=== PATIENT | male | born 1960 | race Caucasian/White ===

== ENCOUNTER → 2021-06-04 | Outpatient (CLI) | payer OTHER ==
[~2021-06-04] VITALS: Ht 170.2 cm; Wt 114.8 kg
[~2021-06-04] MED LIST: ASA81BEC PO; CHILDREN'S ZYRT10 M1 PO; DIOVAN HCT 1601 EACH PO; KLOR-CON 10 ER10 MEQ PO; Q-SORB CO Q-10100 MG PO; TOPROL XL100 MG PO; VERAPAMIL E.R240 M1 PO; VITAMIN D310 MC4 PO
[2021-06-04 07:42] VITALS: BP 161/80
[2021-06-04 08:32] LABS: HEMATOCRIT 39.5 % (42.0-52.0); MCH 33.3 pg (26.0-34.0); MCHC 35.4 g/dL (28.0-37.0); RBC 4.2 mil/uL (4.50-6.00); RDW 12.8 % (10.5-14.5); WBC 5.2 thou/uL (4.0-11.0)
[2021-06-04 08:40] LABS: CALCIUM 8.5 mg/dL (8.5-10.1); CREATININE 1.1 mg/dL (0.7-1.3); POTASSIUM 3.3 mmol/L (3.5-5.1)
== END | disposition home or self-care (01) ==
LOC: CATH 06:31
PROVIDERS: ATTEND Nuclear Medicine Nuclear Cardiology
DX: I70.1 Atherosclerosis of renal artery (principal); I70.90 Unspecified atherosclerosis; I15.0 Renovascular hypertension; M79.604 Pain in right leg; M79.605 Pain in left leg; I10 Essential (primary) hypertension; E78.5 Hyperlipidemia, unspecified; E11.9 Type 2 diabetes mellitus without complications; F17.210 Nicotine dependence, cigarettes, uncomplicated; Z98.890 Other specified postprocedural states; Z79.899 Other long term (current) drug therapy; Z85.828 Personal history of other malignant neoplasm of skin; Z79.82 Long term (current) use of aspirin

== ENCOUNTER → 2021-06-04 | Outpatient (CLI) | payer OTHER | LOC: CAT 12:47 | PROVIDERS: ATTEND Nuclear Medicine Nuclear Cardiology | DX: Z13.6 Encounter for screening for cardiovascular disorders (principal); E78.00 Pure hypercholesterolemia, unspecified; I25.10 Atherosclerotic heart disease of native coronary artery without angina pectoris ==

== ENCOUNTER → 2021-06-04 | Outpatient (CLI) | payer OTHER | LOC: SJCVCIMAG | PROVIDERS: ATTEND Nuclear Medicine Nuclear Cardiology | DX: I65.23 Occlusion and stenosis of bilateral carotid arteries (principal) ==

== ENCOUNTER → 2021-07-13 | Outpatient (CLI) | payer OTHER | LOC: SJCVCIMAG 06-28 11:46 | PROVIDERS: ATTEND Internal Medicine Cardiovascular Disease | DX: R06.00 Dyspnea, unspecified (principal) ==